=== PATIENT | female | born 1995 | race African-American/Black ===

== ENCOUNTER 2023-07-02 09:20 | Outpatient (REF) | payer OTHER, SELFPAY ==
--- NOTE | ~2023-07-02 | US_ITS ---
EXAMINATION: US PELVIS CLINICAL INFORMATION: Irregular menses; vaginal bleeding of one month's duration; the last menstrual period was on 06/01/2023. COMPARISON: None available. TECHNIQUE: Ultrasound of the pelvis is performed using both transabdominal and transvaginal transducers along with Doppler. Transvaginal imaging is performed due to inadequate visualization transabdominally. FINDINGS: Uterus: The uterus is anteverted and measures 6.3 x 2.6 x 4.3 cm. The double wall endometrial thickness is 4 mm. A small amount of nonspecific fluid is seen within the endometrial canal. The uterus is smooth in contour and has normal myometrial echogenicity. No visible fibroid. Adnexa: Both ovaries are visualized. There is normal color flow to the adnexa. There is no ovarian torsion. There is no pelvic ascites or fluid collection. Right ovary measures 1.5 x 2.4 x 1.0 cm, volume 2.0 mL. Left ovary measures 1.1 x 1.9 x 1.8 cm, volume 2.0 mL. US/US pelvic and transvaginal IMPRESSION: Unremarkable examination.
== END 2023-07-02 09:21 | disposition home or self-care (01) ==
LOC: HO.UMASIMG 09:20
PROVIDERS: Visit Provider Nurse Practitioner Women's Health
DX: N92.6 Irregular menstruation, unspecified (principal)
CPT/HCPCS: 76830; 76856